=== PATIENT | female | born 1970 | race Caucasian/White ===

== ENCOUNTER 2018-12-05 02:37 | Emergency (ER) | payer OTHER ==
[2018-12-05 02:44] VITALS: TEMP 98.2; BMI 27.3
--- NOTE | 2018-12-05 04:50 | PDOC ---
History of Present Illness - General Chief Complaint: Eye Problem Stated Complaint: EYE PROBLEM Time Seen by Provider: 12/05/18 04:50 History Source: Patient Exam Limitations: No Limitations - History of Present Illness Initial Comments: 48 year old female with PMH appediceal malignancy (s/p resection, chemo, in remission) presented to ED for right eye swelling x4 days. Pt reported itching. Pt denied visual changes, pain to the eye itself, fever, vomiting, chest pain, shortness of breath. Pt reported she was seen at Urgent Care x2 days ago, was given erythromycin ointment to apply to the skin, which has provided no relief of her symptoms. ROS General: denied fever, chills, generalized weakness. HEENT: denied sore throat, rhinorrhea, ear pain. Eye: admitted to infraorbital pain. Cardiovascular: denied chest pain, palpitations, syncope, diaphoresis. Respiratory: denied shortness of breath, cough, sputum production, hemoptysis. Gastrointestinal: denied abdominal pain, nausea, vomiting, diarrhea, constipation, blood in stool. Genitourinary: denied dysuria, increased urinary frequency, hematuria, urinary incontinence, flank pain. Back: denied back pain. Musculoskeletal: denied joint pain, muscle pain, joint swelling. Neurological: denied headache, dizziness, numbness, tingling, weakness. Integumentary: denied rash, laceration, abrasion. Hematologic/Lymphatic: denied bruising or bleeding. PE Constitutional: Well-nourished, Well-developed, appearing stated age. HEENT: head is normocephalic, atraumatic. Eyes: 20:15 vision bilaterally. EOMI. no pain with EOM. no blown pupils. PERRLA. right sided infraorbital swelling without tenderness, with warmth, mild erythema. Neck: supple. Full ROM. Cardiovascular: regular heart rhythm. no murmurs. no pericardial friction rub. Respiratory: clear to auscultation bilaterally. no crackles, rhonchi or wheezing. no stridor. Gastrointestinal: soft, nontender. normal bowel sounds. no rebound, guarding, masses. Extremities: peripheral pulses intact. no lower extremity edema. Neurological: CN 2-12 grossly intact. moves all four extremities. Psych: awake, alert, oriented x3. follows commands. answers questions appropriately. Past History - Past Medical History Allergies/Adverse Reactions: Allergies Allergy/AdvReac Type Severity Reaction Status Date / Time aspirin Allergy Verified 12/05/18 03:40 Home Medications: Ambulatory Orders Amoxicillin/Potassium Clav [Augmentin 875-125 Tablet] 1 each PO BID #14 tablet 12/05/18 Apixaban [Eliquis] 5 mg PO BID 12/05/18 Cancer: Yes (appendicial) COPD: No DVT: Yes - Surgical History Appendectomy: Yes GI Surgery: Yes (colon resection) - Suicide/Smoking/Psychosocial Hx Smoking History: Never smoked *Physical Exam - Vital Signs Last Vital Signs Temp Pulse Resp BP Pulse Ox 98.2 F 76 18 108/75 98 12/05/18 02:40 12/05/18 02:40 12/05/18 02:40 12/05/18 02:40 12/05/18 02:40 Medical Decision Making - Medical Decision Making 48 year old female with above PMH presented to ED for right infraorbital swelling x4 days associated with itching, nonresponsive to erythrmycin ointment. Initial Vital Signs Temp Pulse Resp BP Pulse Ox 98.2 F 76 18 108/75 98 12/05/18 02:40 12/05/18 02:40 12/05/18 02:40 12/05/18 02:40 12/05/18 02:40 Afebrile. No tachycardia. No tachypnea. Mild hypotension. No hypoxia on room air. Labs ordered: urine testing Imaging ordered: CT orbits Medications ordered: tylenol 975 mg PO once 12/05/18 06:51 CT report: cellulitis without septal involvement. Medications ordered: Augmentin Pt informed of results and given copy of report. Pt informed to F/U with PCP promptly. Pt given return precautions. *DC/Admit/Observation/Transfer Diagnosis at time of Disposition: Cellulitis - Discharge Dispostion Disposition: HOME Condition at time of disposition: Stable Decision to Admit order: No - Prescriptions Prescriptions: Amoxicillin/Potassium Clav [Augmentin 875-125 Tablet] 1 each PO BID #14 tablet - Referrals Referrals: Jordy Miller [Primary Care Provider] - - Patient Instructions Printed Discharge Instructions: DI for Cellulitis -- Adult Additional Instructions: Take prescribed medications as indicated on label. Follow up with your primary care doctor within 3 days. Your care is not complete until you follow up. Take Tylenol over the counter for pain. Take as advised on label. Return to the Emergency Department for increasing pain, fever, vomiting, changes to vision, changes to pupil, increasing redness of the whites of your eye, increasing headache despite Tylenol use, chest pain, shortness of breath, numbness, weakness, tingling, speech changes, gait changes or any other new, worsening or concerning symptoms. - Post Discharge Activity Forms/Work/School Notes: Back to Work
--- NOTE | 2018-12-05 04:52 | PDOC ---
Attending Attestation - Resident Resident Name: Radha Lombardi - ED Attending Attestation I have performed the following: I have examined & evaluated the patient, The case was reviewed & discussed with the resident, I agree w/resident's findings & plan - HPI HPI: 12/05/18 22:21 Pt has cellulitis beneath right eye. Ongoing for a few days and worse now despite ophthalmic ointment. - Physicial Exam PE: 12/05/18 22:22 Agree with resident exam. Pt has no corneal abrasion with staining. She is comfortable. And she is reading her book and her phone in her stretcher. - Medical Decision Making 12/05/18 06:48 Patient Name: LEYDI SOL THIS IS A PRELIMINARY REPORT FROM [facility] DATE OF SERVICE: 2018-12-05 05:53:40 IMAGES: [id number] EXAM: CT orbits without contrast HISTORY: Right infraorbital swelling and warmth COMPARISON: None. FINDINGS: There is infiltration of the subcutaneous fat of the right infraorbital cheek. Given the above history (no history of trauma stated) this most likely represents cellulitis. No abscess. No post septal component. The globes and orbits are normal. The maxillary alveolar plate is not completely included on the scan but there is at least 1 periapical lucency indicating dental disease. Cannot determine based on this scan if dental disease is the source of the cellulitis. Note made of mucosal thickening and retention cyst/polyp of the left maxillary sinus and mucosal thickening in the right maxillary sinus. Osseous structures are intact.
[2018-12-05] MEDS ORDERED: ACETAMINOPHEN 325 MG TABLET (FP) PO ONE (05:29)
[2018-12-05] MEDS ORDERED: ACETAMINOPHEN 325 MG TABLET (FP) ONE (05:43)
[2018-12-05] MEDS ORDERED: AMOX TR/POT CLAV 875MG/125MG TABLETS (FP) PO ONE (06:49)
[2018-12-05] MEDS ORDERED: AMOX TR/POT CLAV 875MG/125MG TABLETS (FP) ONE (06:55)
[2018-12-05 07:00] VITALS: BP 114/75; PULSE 75
== END 2018-12-05 06:59 | disposition home or self-care (01) ==
LOC: JER 02:37
DX: H05.011 Cellulitis of right orbit (principal); Z86.718 Personal history of other venous thrombosis and embolism; Z79.01 Long term (current) use of anticoagulants; Z85.89 Personal history of malignant neoplasm of other organs and systems
CPT/HCPCS: 70480-TC; 84703; 99282-25